=== PATIENT | male | born 1970 ===

== ENCOUNTER 2018-06-06 13:52 | Emergency (ER) | payer OTHER ==
[2018-06-06 13:58] VITALS: BP 124/86; PULSE 95; RESP 18; TEMP 98.3; O2SAT 99
--- NOTE | 2018-06-06 14:46 | RAD ---
PROCEDURE: Right Hand Radiographs. HISTORY: r/o fx COMPARISON: None. FINDINGS: BONES: No acute fracture. JOINTS: Unremarkable. SOFT TISSUES: Normal. OTHER FINDINGS: None. IMPRESSION: No demonstrated fracture or dislocation.
--- NOTE | 2018-06-06 15:08 | ED PDOC ---
Upper Extremity Pain/Injury Time Seen by Provider: 06/06/18 14:12 Chief Complaint (Nursing): Finger,Hand,&Wrist Chief Complaint (Provider): Right Hand History Per: Patient History/Exam Limitations: no limitations Onset/Duration Of Symptoms: Hrs Current Symptoms Are (Timing): Better Quality: "Pain" Additional Complaint(s): 47 year old male presents to the ED for an evaluation of his right hand. Patient reports he was trying to remove a piece of plastic from the elevator today and his right hand became jammed. He felt his right 5th digit pop and he shook his hand and felt the joint went back into place. Currently, he has pain radiating down to his right elbow. Otherwise he denies any deformity, swelling or any other injuries. PMD: no family provider Past Medical History Reviewed: Historical Data, Nursing Documentation, Vital Signs Vital Signs: Last Vital Signs Temp 98.3 F 06/06/18 13:55 Pulse 95 H 06/06/18 13:55 Resp 18 06/06/18 13:55 BP 124/86 06/06/18 13:55 Pulse Ox 99 06/06/18 13:55 - Medical History PMH: No Chronic Diseases - Family History Family History: States: Unknown Family Hx - Home Medications Home Medications: Ambulatory Orders Medication Instructions Recorded RX: No Known Home Med 03/15/17 - Allergies Allergies/Adverse Reactions: Allergies Allergy/AdvReac Type Severity Reaction Status Date / Time No Known Allergies Allergy Verified 03/15/17 13:42 Review of Systems ROS Statement: Except As Marked, All Systems Reviewed And Found Negative Constitutional: Negative for: Fever, Chills Musculoskeletal: Positive for: Hand Pain (right). Negative for: Shoulder Pain Skin: Negative for: Rash Psych: Negative for: Suicidal ideation (homicidal ideation ) Physical Exam - Reviewed Nursing Documentation Reviewed: Yes Vital Signs Reviewed: Yes - Physical Exam Appears: Positive for: Well, Non-toxic, No Acute Distress Head Exam: Positive for: ATRAUMATIC, NORMAL INSPECTION, NORMOCEPHALIC Skin: Positive for: Normal Color, Warm, Dry. Negative for: Rash Eye Exam: Positive for: EOMI, Normal appearance, PERRL Cardiovascular/Chest: Positive for: Regular Rate, Rhythm. Negative for: Murmur Respiratory: Positive for: Normal Breath Sounds. Negative for: Decreased Breath Sounds, Wheezing, Respiratory Distress Extremity: Positive for: Normal ROM, Tenderness (2nd right digit over MCP upon palpation on the right hand), Other (Strength on right hand is 3+ out of 5 with no tenderness on 4th right digit ) Neurologic/Psych: Positive for: Alert, Oriented (x3). Negative for: Motor/Sensory Deficits - ECG O2 Sat by Pulse Oximetry: 99 (RA) Pulse Ox Interpretation: Normal Medical Decision Making Medical Decision Making: Time: 1413 Initial Plan: Hand Right 3 Views [RAD] Reevaluation 1443 PROCEDURE: Right Hand Radiographs. FINDINGS: BONES: No acute fracture. JOINTS: Unremarkable. SOFT TISSUES: Normal. OTHER FINDINGS: None. IMPRESSION: No demonstrated fracture or dislocation. Scribe Attestation: Documented by Quirino Mock, acting as a scribe Chari King PA-C Provider Scribe Attestation: All medical record entries made by the Scribe were at my direction and personally dictated by me. I have reviewed the chart and agree that the record accurately reflects my personal performance of the history, physical exam, medical decision making, and the department course for this patient. I have also personally directed, reviewed, and agree with the discharge instructions and disposition. Disposition - Clinical Impression Clinical Impression: Hand contusion - Patient ED Disposition Is Patient to be Admitted: No Counseled Patient/Family Regarding: Diagnosis, Need For Followup, Rx Given - Disposition Disposition: Routine/Home Disposition Time: 15:16 Condition: STABLE Instructions: Contusion (DC) Forms: Tiny Pictures (Greek)
== END 2018-06-06 15:12 | disposition home or self-care (01) ==
LOC: H.ER 13:52
DX: S60.221A Contusion of right hand, initial encounter (principal); W22.8XXA Striking against or struck by other objects, initial encounter; Y92.89 Other specified places as the place of occurrence of the external cause